=== PATIENT | female | born 1995 | race Caucasian/White ===

== ENCOUNTER 2016-03-25 13:03 | Emergency (ER) | payer OTHER ==
[2016-03-25] MEDS ORDERED: OXYCODONE/APAP 5/325 TAB PO ONE (13:21)
--- NOTE | 2016-03-25 13:29 | EDPHY ---
H & P Time Seen by Provider: 03/25/16 13:24 HPI/ROS: CHIEF COMPLAINT: Sore throat HISTORY OF PRESENT ILLNESS: This patient is a 20 year old female presenting with acute sore throat, onset yesterday. Progressively worsening today. Associated with fever, onset last night, and myalgias. She also notes vomiting and loose stools earlier this week. Symptoms are moderate in severity. She did not receive an influenza vaccine this year. Her roommate has a viral syndrome currently. Denies cough or congestion. REVIEW OF SYSTEMS: Constitutional: fever, chills Eyes: No visual changes ENT: sore throat Respiratory: No cough, no shortness of breath Cardiac: No chest pain Gastrointestinal: nausea, vomiting, loose stools, no abdominal pain Genitourinary: No hematuria, no dysuria Musculoskeletal: Myalgias. No leg pain or swelling Skin: No rash Neurological: No headache, no numbness, no weakness Psychiatric: No depression Past Medical/Surgical History: Mononucleosis Social History: [employer] student Smoking Status: Never smoked Physical Exam: General Appearance: Alert, no distress Eyes: Pupils equal and round, no conjunctival pallor or injection ENT, Mouth: Mucous membranes moist, moderate pharyngeal erythema Neck: Normal inspection Respiratory: Lungs are clear to auscultation Cardiovascular: Regular rate and rhythm Gastrointestinal: Abdomen is soft and non- tender Neurological: A&O, nonfocal, normal gait Skin: Warm and dry, no rash Extremities: Nontender, no pedal edema Psychiatric: Mood and affect normal Constitutional: Initial Vital Signs Temperature (C) 37.9 C 03/25/16 13:04 Heart Rate 114 H 03/25/16 13:04 Blood Pressure 133/81 H 03/25/16 13:04 O2 Sat (%) 98 03/25/16 13:04 O2 Delivery Mode Room Air Allergies/Adverse Reactions: amoxicillin Allergy (Verified 06/19/15 00:07) gluten Allergy (Verified 03/25/16 13:05) Milk Containing Products [dairy] Allergy (Verified 03/25/16 13:05) Home Medications: Medication Instructions Recorded Control 03/25/16 Hydrocodone/APAP 5/325 [Marlette 1 - 2 tab PO Q4H PRN #10 tab 03/25/16 5/325] Medical Decision Making ED Course/Re-evaluation: Rapid strep test is negative. Influenza test also ordered. Decadron 6mg orally given. Patient will call back for influenza results. Customary return precautions given. - Data Points Laboratory Results: 03/25/16 03/25/16 03/25/16 Unknown 13:55 13:07 Influenza Typ A,B (DFA) NEGATIVE FOR FLU (NEGATIVE) Group A Strep Screen NEGATIVE (NEGATIVE) Group A Strep DNA NEGATIVE (NEGATIVE) Medications Given: Discontinued Medications Dexamethasone Sodium Phosphate (Decadron) 6 mg IVP/PO EDNOW ONE Stop: 03/25/16 13:40 Last Admin: 03/25/16 14:08 Dose: 6 mg Oxycodone/Acetaminophen (Percocet 5/325) 1 tab PO EDNOW ONE Stop: 03/25/16 13:22 Last Admin: 03/25/16 13:25 Dose: 1 tab Departure - Departure Disposition: Home, Routine, Self-Care Clinical Impression: Acute pharyngitis Qualifiers: Pharyngitis/tonsillitis etiology: unspecified etiology Qualifier Code: (J02.9) Acute pharyngitis, unspecified Condition: Good Instructions: Pharyngitis (ED) Additional Instructions: Return to the Emergency Department for high fever, difficulty swallowing, difficulty tolerating liquids, neck pain or stiffness, shortness of breath or other concerns. Use Tylenol and/or ibuprofen as directed for pain. Drink plenty of fluids. Call back in two hours for influenza results. Adult Pain & Fever Control: We recommend Acetaminophen (Tylenol) and Ibuprofen (Motrin,Advil) for pain and fever control. When fever is high or pain severe, both drugs can be used at the same time, but at different intervals. Please note the time differences. Your dose is: Acetaminophen 650mg every 4 to 6 hours Ibuprofen 600mg every 6-8 hours with food Note: do not take Acetaminophen with Hydrocodone (Vicodin, Lortab) or Oycodone (Percocet). These medications also contain Acetaminophen. No more than 3000mg of Acetaminophen should be taken in 24 hours (for an adult). Referrals: [facility] [Outside] - As per Instructions Prescriptions: Hydrocodone/APAP 5/325 [Marlette 5/325] 1 - 2 tab PO Q4H PRN #10 tab PRN Reason: Pain, Moderate Report Scribed for: Angela Peterson Report Scribed by: Carmita Saucedo Date of Report: 03/25/16 Time of Report: 13:26 Physician Review and Approval Statement: 03/25/16 13:26 Portions of this note were transcribed by a medical supply technician. I personally performed a history, physical exam, medical decision making, and confirmed accuracy of information the transcribed note.
[2016-03-25] MEDS ORDERED: DEXAMETHASONE VARIABLE DOSE IVP/PO ONE (13:39)
[2016-03-25] MEDS ORDERED: DEXAMETHASONE 10 MG/ML VIAL ONE (13:46)
[2016-03-25 14:21] VITALS: BP 128/85; PULSE 88; RESP 18; TEMP 97.7; O2SAT 96
== END 2016-03-25 14:19 | disposition home or self-care (01) ==
DX: J02.9 Acute pharyngitis, unspecified (principal)

== ENCOUNTER 2016-06-13 00:18 | Emergency (ER) | payer OTHER ==
[2016-06-13] MEDS ORDERED: DEXAMETHASONE 10 MG/ML VIAL IVP ONE (00:56)
[2016-06-13] MEDS ORDERED: KETOROLAC 15 MG/1 ML SDV IVP ONE (00:56)
[2016-06-13] MEDS ORDERED: HALOPERIDOL LACT 5 MG/ML INJ IVP ONE (00:56)
[2016-06-13] MEDS ORDERED: NS 1,000 ML IV ONE (01:37)
--- NOTE | 2016-06-13 02:22 | EDPHY ---
H & P Stated Complaint: PITTS, N/V, abd pain since 06/05 Time Seen by Provider: 06/13/16 00:55 HPI/ROS: Chief Complaint: Headache, nausea HPI: 21-year-old female with history of chronic constipation prefers presenting with 1 week of worsening headache with new photophobia nausea and vomiting. Patient states that she has not have a history of the same. Denies any from trauma or injuries. Started out as a bifrontal headache was being progressively worse. No relief with [id number] medications. Suffers from chronic constipation which has been worked up extensively by GI and states she has not had a bowel movement in about a week, however this is normal for her. She has been drinking plenty of fluids PE. No fevers or chills. No neck pain or stiffness. No urinary frequency urgency. This is not the worst headache of her life. Is about an 8/10. It was gradual in onset. ROS: 10 point Review of Systems is negative except as noted in the HPI. PMH: Chronic constipation Social History: No smoking, occasional alcohol, no recreational drug use Family History: non-contributory Physical Exam: Gen: Awake, Alert, moderate photophobia HEENT: Nose: no rhinorrhea Eyes: PERRLA, EOMI Mouth: Moist mucosa Neck: Supple, no JVD Chest: nontender, lungs clear to auscultation Heart: S1, S2 normal, no murmur Abd: Soft, non-tender, no guarding Back: no CVA tenderness, no midline tenderness Ext: no edema, non-tender Skin: no rash Neuro: CN II-XII intact, Sensation grossly intact, Strength 5/5 in bilateral upper and lower extremities - Personal History LMP (Females 10-55): 1-7 Days Ago Current Tetanus/Diphtheria Vaccine: Unsure Current Tetanus Diphtheria and Acellular Pertussis (TDAP): Unsure Tetanus Vaccine Date: <10 years - Medical/Surgical History Hx Asthma: No Hx Chronic Respiratory Disease: No Hx Diabetes: No Hx Cardiac Disease: No Hx Renal Disease: No Hx Cirrhosis: No Hx Alcoholism: No Hx HIV/AIDS: No Hx Splenectomy or Spleen Trauma: No Other PMH: PMH- C-DIFF 2014, MONO, tonsilectomy - Social History Smoking Status: Never smoked Constitutional: Initial Vital Signs Temperature (C) 36.7 C 06/13/16 00:19 Heart Rate 92 06/13/16 00:19 Respiratory Rate 16 06/13/16 00:19 Blood Pressure 132/82 H 06/13/16 00:19 O2 Sat (%) 96 06/13/16 00:19 O2 Delivery Mode Room Air Allergies/Adverse Reactions: amoxicillin Allergy (Verified 06/19/15 00:07) gluten Allergy (Verified 03/25/16 13:05) Milk Containing Products [dairy] Allergy (Verified 03/25/16 13:05) Home Medications: Medication Instructions Recorded Control 03/25/16 Medical Decision Making ED Course/Re-evaluation: Patient is improved improved after migraine cocktail. Urinalysis is normal as is a negative test. No further vomiting here. Will discharge with follow-up with primary care physician, return for worsening. - Data Points Laboratory Results: 06/13/16 06/13/16 02:13 02:13 Urine Color YELLOW Urine Appearance MODERATELY TURBID Urine pH 7.0 (5.0-7.5) Ur Specific [place] 1.024 (1.002-1.030) Urine Protein NEGATIVE (NEGATIVE) Urine Ketones NEGATIVE (NEGATIVE) Urine Blood NEGATIVE (NEGATIVE) Urine Nitrate NEGATIVE (NEGATIVE) Urine Bilirubin NEGATIVE (NEGATIVE) Urine Urobilinogen NEGATIVE EU EU (0.2-1.0) Ur Leukocyte Esterase NEGATIVE (NEGATIVE) Urine Glucose NEGATIVE (NEGATIVE) Urine Test NEGATIVE Medications Given: Discontinued Medications Dexamethasone (Decadron Injection) 10 mg IVP EDNOW ONE Stop: 06/13/16 00:57 Last Admin: 06/13/16 01:32 Dose: 10 mg Haloperidol Lactate (Haldol Injection) 2.5 mg IVP EDNOW ONE Stop: 06/13/16 00:57 Last Admin: 06/13/16 01:33 Dose: 2.5 mg Sodium Chloride (Ns) 1,000 mls @ 0 mls/hr IV ONCE ONE PRN Reason: Wide Open Stop: 06/13/16 01:38 Last Admin: 06/13/16 01:15 Dose: 1,000 mls Ketorolac Tromethamine (Toradol) 15 mg IVP EDNOW ONE Stop: 06/13/16 00:57 Last Admin: 06/13/16 01:31 Dose: 15 mg Departure - Departure Disposition: Home, Routine, Self-Care Clinical Impression: Headache Condition: Good Instructions: Acute Headache (ED) Additional Instructions: Follow up with your textile technical officer and with [facility] for further evaluation. Return to the ER for increasing headache, uncontrolled nausea vomiting, fevers, chills, or any other concerns. Referrals: UNKNOWN,NAME [Other] - As per Instructions [facility] [Outside] - As per Instructions
[2016-06-13 02:25] LABS: COLOR YELLOW; LEUKOCYTE ESTERASE,URINE NEGATIVE (NEGATIVE); NITRITE,URINE NEGATIVE (NEGATIVE)
[2016-06-13 02:55] VITALS: BP 105/70; PULSE 75; RESP 14; TEMP 98.4; O2SAT 95
== END 2016-06-13 02:54 | disposition home or self-care (01) ==
DX: R51 Headache (principal)
CPT/HCPCS: 96374; J1885

== ENCOUNTER 2016-12-02 19:28 | Emergency (ER) | payer OTHER ==
[2016-12-02] MEDS ORDERED: NS 1,000 ML IV ONE (19:57)
[2016-12-02] MEDS ORDERED: fentaNYL 100 MCG/2 ML INJ IVP ONE (19:57)
[2016-12-02] MEDS ORDERED: ONDANSETRON 4 MG/2 ML VIAL IVP ONE (19:57)
--- NOTE | 2016-12-02 20:04 | EDPHY ---
H & P Time Seen by Provider: 12/02/16 19:40 HPI/ROS: CHIEF COMPLAINT: Abdominal pain, vomiting HISTORY OF PRESENT ILLNESS: 21-year-old female presents to the emergency department with lower abdominal pain and vomiting that began abruptly 1 hour prior to arrival. The patient states that she was at work and the pain began abruptly. She complains of left greater than right lower abdominal pain. She feels nauseous and has vomited multiple times. No back pain. No urinary symptoms. Last menstrual period was 1 week ago and she denies . She takes oral contraceptive pills. Denies chest pain or difficulty breathing. Denies any reported trauma. She has never had this pain in the past. REVIEW OF SYSTEMS: Constitutional: No fever, no chills. Eyes: No double or blurry vision. ENT: No sore throat. Respiratory: No cough, no shortness of breath. Cardiac: No chest pain. Gastrointestinal: Abdominal pain and vomiting as above. No diarrhea. Genitourinary: No dysuria. Musculoskeletal: No neck or back pain. Skin: No rashes. Neurological: No headache. Past Medical/Surgical History: Negative Social History: [employer] student Smoking Status: Never smoked Physical Exam: General Appearance: Alert, no distress. Tearful. Afebrile. Eyes: Pupils equal and round. Extraocular motions are all intact. ENT: Mouth: Mucous membranes moist. Respiratory: No wheezing, rhonchi, or rales, lungs are clear to auscultation. Cardiovascular: Regular rate and rhythm. Gastrointestinal: Abdomen is soft. Tenderness with palpation in the left greater than right lower quadrant. Neurological: Alert and oriented x 3, cranial nerves II through XII grossly intact Skin: Warm and dry, no rashes. Musculoskeletal: Nontender to palpate along the cervical, thoracic or lumbar spine. Neck is supple. Extremities: Full range of motion and no peripheral edema. Psychiatric: Patient is oriented X 3, there is no agitation. Constitutional: Initial Vital Signs Temperature (C) 36.6 C 12/02/16 19:36 Heart Rate 89 12/02/16 19:36 Respiratory Rate 18 12/02/16 19:36 Blood Pressure 117/88 H 12/02/16 19:36 O2 Sat (%) 99 12/02/16 19:36 O2 Delivery Mode Room Air Allergies/Adverse Reactions: amoxicillin Allergy (Verified 12/02/16 19:38) gluten Allergy (Verified 12/02/16 19:38) Milk Containing Products [dairy] Allergy (Verified 12/02/16 19:38) Home Medications: Medication Instructions Recorded Control 03/25/16 Medical Decision Making - Diagnostics Imaging Results: Imaging Impressions Pelvic/Renal Ultrasound 12/02/16 19:57 Impression: 1. Normal ovaries. No ovarian cysts, torsion, or free fluid. 2. Normal uterus. Findings discussed with emergency department physician vet assistant, Jaylene Nunes PA-C on December 02, 2016 at 9:36 p.m. Imaging: Discussed imaging studies w/ research scholar Radiologist ED Course/Re-evaluation: Patient had IV established and laboratory studies were drawn. Laboratory studies were within normal limits. She was initially given IV fentanyl and Zofran for pain. Pelvic ultrasound was unremarkable. The patient continued to have left lower quadrant abdominal pain. Patient was given Toradol 30 mg IV. She was feeling much better. She still continued to have mild pain in the left lower quadrant. I recommended CT imaging of the abdomen pelvis, however the patient declined. Feel that this is reasonable. She did agree to return to the emergency department if she developed worsening symptoms, vomiting, fevers or chills or if she felt worse in any way. Differential Diagnosis: Including but not limited to ovarian cyst, ovarian torsion, urinary tract infection, pyelonephritis, kidney stone, acute appendicitis, colitis, diverticulitis - Data Points Laboratory Results: Laboratory Results 12/02/16 20:04 12/02/16 20:04 12/02/16 12/02/16 12/02/16 20:17 20:04 20:04 WBC RBC Hgb Hct MCV MCH MCHC RDW Plt Count MPV Neut % (Auto) Lymph % (Auto) [place] % (Auto) Eos % (Auto) Baso % (Auto) Nucleat RBC Rel Count Absolute Neuts (auto) Absolute Lymphs (auto) Absolute Monos (auto) Absolute Eos (auto) Absolute Basos (auto) Absolute Nucleated RBC Immature Gran % Immature Gran # Sodium 141 mEq/L mEq/L (134-144) Potassium 4.0 mEq/L mEq/L (3.5-5.2) Chloride 101 mEq/L mEq/L (97-110) Carbon Dioxide 22 mEq/l mEq/l (22-31) Anion Gap 18 mEq/L H mEq/L (8-16) BUN 10 mg/dL mg/dL (7-23) Creatinine 0.8 mg/dL mg/dL (0.6-1.0) Estimated GFR > 60 Glucose 79 mg/dL mg/dL (70-100) Calcium 10.8 mg/dL H mg/dL (8.5-10.4) Phosphorus 4.1 mg/dL mg/dL (2.5-4.5) Beta HCG, Qual NEGATIVE Urine Color YELLOW Urine Appearance HAZY Urine pH 5.0 (5.0-7.5) Ur Specific [place] 1.021 (1.002-1.030) Urine Protein NEGATIVE (NEGATIVE) Urine Ketones NEGATIVE (NEGATIVE) Urine Blood NEGATIVE (NEGATIVE) Urine Nitrate NEGATIVE (NEGATIVE) Urine Bilirubin NEGATIVE (NEGATIVE) Urine Urobilinogen NEGATIVE EU EU (0.2-1.0) Ur Leukocyte Esterase NEGATIVE (NEGATIVE) Urine RBC 1-3 /hpf /hpf (0-3) Urine WBC 1-3 /hpf /hpf (0-3) Ur Epithelial Cells TRACE /lpf /lpf (NONE-1+) Urine Bacteria TRACE /hpf H /hpf (NONE SEEN) Urine Mucus TRACE /lpf /lpf (NONE-1+) Urine Glucose NEGATIVE (NEGATIVE) 12/02/16 20:04 WBC 8.58 10^3/uL 10^3/uL (3.80-9.50) RBC 4.97 10^6/uL 10^6/uL (4.18-5.33) Hgb 15.8 g/dL g/dL (12.6-16.3) Hct 45.5 % % (38.0-47.0) MCV 91.5 fL fL (81.5-99.8) MCH 31.8 pg pg (27.9-34.1) MCHC 34.7 g/dL g/dL (32.4-36.7) RDW 11.9 % % (11.5-15.2) Plt Count 298 10^3/uL 10^3/uL (150-400) MPV 10.2 fL fL (8.7-11.7) Neut % (Auto) 59.4 % % (39.3-74.2) Lymph % (Auto) 30.3 % % (15.0-45.0) [place] % (Auto) 7.3 % % (4.5-13.0) Eos % (Auto) 1.9 % % (0.6-7.6) Baso % (Auto) 0.6 % % (0.3-1.7) Nucleat RBC Rel Count 0.0 % % (0.0-0.2) Absolute Neuts (auto) 5.10 10^3/uL 10^3/uL (1.70-6.50) Absolute Lymphs (auto) 2.60 10^3/uL 10^3/uL (1.00-3.00) Absolute Monos (auto) 0.63 10^3/uL 10^3/uL (0.30-0.80) Absolute Eos (auto) 0.16 10^3/uL 10^3/uL (0.03-0.40) Absolute Basos (auto) 0.05 10^3/uL 10^3/uL (0.02-0.10) Absolute Nucleated RBC 0.00 10^3/uL 10^3/uL (0-0.01) Immature Gran % 0.5 % % (0.0-1.1) Immature Gran # 0.04 10^3/uL 10^3/uL (0.00-0.10) Sodium Potassium Chloride Carbon Dioxide Anion Gap BUN Creatinine Estimated GFR Glucose Calcium Phosphorus Beta HCG, Qual Urine Color Urine Appearance Urine pH Ur Specific [place] Urine Protein Urine Ketones Urine Blood Urine Nitrate Urine Bilirubin Urine Urobilinogen Ur Leukocyte Esterase Urine RBC Urine WBC Ur Epithelial Cells Urine Bacteria Urine Mucus Urine Glucose Medications Given: Discontinued Medications Fentanyl (Sublimaze) 50 mcg IVP EDNOW ONE Stop: 12/02/16 19:58 Last Admin: 12/02/16 20:20 Dose: 50 mcg Sodium Chloride (Ns) 1,000 mls @ 0 mls/hr IV EDNOW ONE; Wide Open PRN Reason: Protocol Stop: 12/02/16 19:58 Last Admin: 12/02/16 20:20 Dose: 1,000 mls Ketorolac Tromethamine (Toradol) 30 mg IVP EDNOW ONE Stop: 12/02/16 21:50 Last Admin: 12/02/16 21:51 Dose: 30 mg Ondansetron HCl (Zofran) 4 mg IVP EDNOW ONE Stop: 12/02/16 19:58 Last Admin: 12/02/16 20:20 Dose: 4 mg Departure - Departure Disposition: Home, Routine, Self-Care Clinical Impression: Abdominal pain Qualifiers: Abdominal location: left lower quadrant Qualified Code(s): R10.32 - Left lower quadrant pain Condition: Good Instructions: Acute Abdominal Pain (ED) Additional Instructions: Abdominal Pain: Return to the Emergency Department immediately for increasing pain, fever, vomiting, or if not completely better in 8-12 hours. Referrals: Radames Lock MD [[facility] Primary Care Provider] - 1 day, if not improved ( Primary care provider manager contact) Stand Alone Forms: School Excuse
[2016-12-02 20:23] LABS: % IMMATURE GRANULYOCYTES 0.5 % (0.0-1.1); ABSOLUTE IMMATURE GRANULOCYTES 0.04 10^3/uL (0.00-0.10); ADD DIFF? NO; ADD MORPH? NO; ADD SCAN? NO; ATYPICAL LYMPHOCYTE FLAG 10 (0-99); FRAGMENT RBC FLAG 0 (0-99); HEMATOCRIT 45.5 % (38.0-47.0); HEMOGLOBIN 15.8 g/dL (12.6-16.3); LEFT SHIFT FLG 0 (0-99); LIPEMIA HEMOLYSIS FLAG 90 (0-99); MEAN CELL HEMOGLOBIN 31.8 pg (27.9-34.1); MEAN CELL HEMOGLOBIN CONCENTR. 34.7 g/dL (32.4-36.7); MEAN CELL VOLUME 91.5 fL (81.5-99.8); MEAN PLATELET VOLUME 10.2 fL (8.7-11.7); PLATELET CLUMPS FLAG 10 (0-99); PLATELET COUNT 298 10^3/uL (150-400); RED BLOOD CELL COUNT 4.97 10^6/uL (4.18-5.33); RED CELL DISTRIBUTION WIDTH 11.9 % (11.5-15.2)
[2016-12-02 20:33] LABS: ANION GAP 18 mEq/L (8-16); CALCIUM 10.8 mg/dL (8.5-10.4); CARBON DIOXIDE 22 mEq/l (22-31); CHLORIDE 101 mEq/L (97-110); CREATININE 0.8 mg/dL (0.6-1.0); GLOMERULAR FILTRATION RATE > 60; GLUCOSE 79 mg/dL (70-100); SODIUM 141 mEq/L (134-144)
[2016-12-02 20:59] LABS: BACTERIA TRACE /hpf (NONE SEEN); COLOR YELLOW; LEUKOCYTE ESTERASE,URINE NEGATIVE (NEGATIVE); MUCUS TRACE /lpf (NONE-1+); NITRITE,URINE NEGATIVE (NEGATIVE)
[2016-12-02] MEDS ORDERED: KETOROLAC 30 MG/1 ML SDV ONE (21:49)
[2016-12-02] MEDS ORDERED: KETOROLAC 30 MG/1 ML SDV IVP ONE (21:49)
[2016-12-02 22:55] VITALS: BP 121/82; PULSE 69; RESP 16; TEMP 98.4; O2SAT 95
== END 2016-12-02 22:52 | disposition home or self-care (01) ==
PROC: 3E0337Z Introduction of Electrolytic and Water Balance Substance into Peripheral Vein, Percutaneous Approach (ICD-10-PCS; principal; 2016-12-02)
DX: R10.32 Left lower quadrant pain (principal); E86.9 Volume depletion, unspecified
CPT/HCPCS: 96374; J1885; J2405; J3010

== ENCOUNTER 2017-03-21 15:08 | Emergency (ER) | payer OTHER ==
--- NOTE | 2017-03-21 15:37 | EDPHY ---
H & P Stated Complaint: referred by [facility] for mastitis - Personal History LMP (Females 10-55): 1-7 Days Ago Current Tetanus/Diphtheria Vaccine: Yes Current Tetanus Diphtheria and Acellular Pertussis (TDAP): Yes Tetanus Vaccine Date: <10 years - Medical/Surgical History Hx Asthma: No Hx Chronic Respiratory Disease: No Hx Diabetes: No Hx Cardiac Disease: No Hx Renal Disease: No Hx Cirrhosis: No Hx Alcoholism: No Hx HIV/AIDS: No Hx Splenectomy or Spleen Trauma: No Other PMH: PMH- C-DIFF 2014, MONO, tonsilectomy, sinus infection - Social History Smoking Status: Never smoked Time Seen by Provider: 03/21/17 15:24 HPI/ROS: CHIEF COMPLAINT: Possible mastitis HISTORY OF PRESENT ILLNESS: 21-year-old immunocompetent female states that 1 week ago she had bilateral nipples pierced at a piercing store. The past today she has noticed erythema and discharge particularly from the left piercing site as well as fever. No nausea or vomiting. Seen at [facility] today and referred to the ER for evaluation, possible IV antibiotics. She is complaining of bilateral axillary adenopathy left greater than right. No dyspnea. No chest pain. No abdominal pain. REVIEW OF SYSTEMS: A ten point review of systems was performed and is negative with the exception of the items mentioned in the HPI PAST MEDICAL & SURGICAL HISTORY: History of chronic skin infections or MRSA history. Up-to-date with tetanus SOCIAL HISTORY:Student PHYSICAL EXAM (Prior to examination, patient consented to physical exam, hands were washed and my usual and customary physical exam procedures followed) 1) GENERAL: Well-developed, well-nourished, alert and oriented. Appears nontoxic, smiling. 2) HEAD: Normocephalic, atraumatic 3) HEENT: Pupils equal, round, reactive to light bilaterally. Sclera anicteric. 4) NECK: Full range of motion, no meningeal signs. 5) LUNGS: Clear auscultation bilaterally, no wheezes, no rhonchi, no retractions. 6) HEART AND CHEST: Chest wall examination with female nurse Nolvia at bedside reveals bilateral nipple piercings in place. There is periareolar erythema left greater than right, discharged from the left nipple piercing site. Bilateral adenopathy left greater than right. No fluctuance, no signs of subareaoler abscess or rosario area older fistula, or deep space infection. 7) ABDOMEN: No guarding, no rebound, no focal tenderness, negative McBurney's, negative Allen's, negative Rovsing's, negative peritoneal sign, 8) MUSCULOSKELETAL: Moving all extremities, no focal areas of tenderness, no obvious trauma. No peripheral edema or discoloration. 9) BACK: No CVA tenderness, no midline vertebral tenderness, no fluctuance, no step-off, no obvious trauma, no visual or palpable abnormality. 10) SKIN: No rash, no petechiae. 11) Psychiatric: Patient is oriented X 3, there is no agitation. DIFFERENTIAL DIAGNOSIS: In no particular order including the mastitis, cellulitis, sub periareolar abscess,periareolar fistula (Mariano,Kristina Garcia) Constitutional: Initial Vital Signs Temperature (C) 37 C 03/21/17 15:14 Heart Rate 109 H 03/21/17 15:14 Respiratory Rate 18 03/21/17 15:14 Blood Pressure 128/90 H 03/21/17 15:14 O2 Sat (%) 98 03/21/17 15:14 O2 Delivery Mode Room Air Allergies/Adverse Reactions: amoxicillin Allergy (Verified 03/21/17 15:13) cefazolin [From Ancef] Allergy (Verified 03/21/17 15:59) gluten Allergy (Verified 03/21/17 15:13) Milk Containing Products [dairy] Allergy (Verified 03/21/17 15:13) Home Medications: Medication Instructions Recorded Control 03/25/16 Doxycycline Hyclate 100 mg PO BID #14 capsule 03/21/17 Wellbutrin Xl 03/21/17 Medical Decision Making ED Course/Re-evaluation: 3:37 p.m.: The patient's bilateral piercings were removed by nursing staff. Recommend she would leave these out. Doubt abscess or deep space infection. I think the patient can be treated on outpatient basis. Plan will be IV Ancef Care of patient under supervision of secondary supervising physician Dr Bear with whom I discussed case. . 4:04 p.m.: I was called emergently to the patient's bedside as she was vomiting , erythematous, concern over possible allergic reaction after IV Ancef was administered. I examined the patient at this time at which point she is retching, skin is erythematous. She is breathing comfortably. She will be administered Benadryl, ranitidine, Solu-Medrol, epinephrine and re-evaluated. 4:14 p.m.: Re-evaluation after epinephrine, H1 H2, Solu-Medrol. Patient asymptomatic now skin color has returned to baseline, lungs clear bilaterally. We discussed that allergic reaction is also possibility with medication and she verbalized understanding of this.. We discussed oral outpatient antibiotic therapy, discussed clindamycin however she notes that she had a bad episode of C diff colitis when she was placed on clindamycin previously. We discussed starting her on doxycycline which she has no known prior adverse reaction. She is already fair-skinned and we discussed doxycycline photo sensitivity and the importance of sun protection. Patient will be observed for a period of time in the ER to ensure no rebound allergic reaction. (Kristina Quintana) Other Provider: I evaluated and participated in the management of the patient. My co-signature indicates that I have reviewed this chart and I agree with thefindings and plan of care as documented.My personal H&P findings include: 21 year old female with nipple piecing several days ago, sent from [facility] for concerns regarding mastitis. Patient has not had a fever but has felt poorly for several days. Noted red areas developing on left breast; worse this morning and sought care. On exam, patient is pleasant, WDWN, nad. Left breast: (piercings had been removed previously) several blotchy, nonconfluent areas of erythema extending superior to nipple. No abscess, no fluctuance. Patient had reported allergy to penicillin with uncertain reaction. She received ancef in the ED, but developed nausea, erythema, vomiting after dose was administered. Treated as allergic reaction with solumedrol, benadryl, epi, h2 frida. 1823: Reassessed patient; she is feeling better after her allergic reaction to Ancef. PA had discussed use of clindamycin for mastitis, but patient concerned regarding prior c diff that developed after receiving clindamycin. She will be prescribed doxycycline for the mastitis, her first dose will be given in the ED. Strict return precautions provided; patient is comfortable with this plan. (Kenia Bear) - Data Points Laboratory Results: Laboratory Results 03/21/17 15:35 03/21/17 15:35 Medications Given: Discontinued Medications Diphenhydramine HCl (Benadryl Injection) 50 mg IVP EDNOW ONE Stop: 03/21/17 16:08 Last Admin: 03/21/17 16:11 Dose: 50 mg Doxycycline Hyclate (Doxycycline Hyclate) 100 mg PO EDNOW ONE PRN Reason: Protocol Stop: 03/21/17 18:31 Last Admin: 03/21/17 19:02 Dose: 100 mg Doxycycline Hyclate (Vibramycin 100 Mg Prepack#2) 1 btl TAKEHOME EDNOW ONE Stop: 03/21/17 18:32 Last Admin: 03/21/17 19:02 Dose: 1 btl Epinephrine HCl (Epinephrine) 0.3 mg IM EDNOW ONE Stop: 03/21/17 16:08 Last Admin: 03/21/17 16:12 Dose: 0.3 mg Cefazolin Sodium/Dextrose (Ancef 1 Gm (Premix)) 50 mls @ 200 mls/hr IV EDNOW ONE PRN Reason: Protocol Stop: 03/21/17 15:47 Last Admin: 03/21/17 15:43 Dose: 50 mls Sodium Chloride (Ns) 1,000 mls @ 0 mls/hr IV ONCE ONE PRN Reason: Wide Open Stop: 03/21/17 15:40 Last Admin: 03/21/17 15:43 Dose: 1,000 mls Methylprednisolone Sodium Succinate (Solu-Medrol) 125 mg IVP EDNOW ONE Stop: 03/21/17 16:08 Last Admin: 03/21/17 16:13 Dose: 125 mg Ondansetron HCl (Zofran) 4 mg IVP EDNOW ONE Stop: 03/21/17 16:08 Last Admin: 03/21/17 16:12 Dose: 4 mg Ranitidine HCl (Zantac) 50 mg IVP EDNOW ONE Stop: 03/21/17 16:08 Last Admin: 03/21/17 16:12 Dose: 50 mg Departure - Departure Disposition: Home, Routine, Self-Care Clinical Impression: Mastitis, Allergic reaction to cephalosporin Condition: Good Instructions: Mastitis (ED), Allergies (ED) Additional Instructions: Rest the infected area, I recommend providing more support to the area as well. Take doxycycline as prescribed. Continue to take ibuprofen for the pain. Warm compresses may help with the pain as well. Return to the ER if you develop redness, swelling, discharge, warmth to the wound, fever, vomiting, diarrhea or any other symptoms that concern you. You had a likely allergic reaction to "cephalosporin" class of medication, do not take this class of medication in the future. If you develop shortness of breath, rash, or any other symptoms call 911. Referrals: TRACY Neal,. [Clinic] - 1-2 days without fail Stand Alone Forms: School Excuse Prescriptions: Doxycycline Hyclate 100 mg PO BID #14 capsule
[2017-03-21] MEDS ORDERED: NS 1,000 ML IV ONE (15:39)
[2017-03-21 15:44] LABS: PLATELET COUNT 208 10^3/uL (150-400)
[2017-03-21] MEDS ORDERED: ONDANSETRON 4 MG/2 ML VIAL ONE (15:56)
[2017-03-21] MEDS ORDERED: RANITIDINE 50 MG/2 ML VIAL IVP ONE (16:07)
[2017-03-21] MEDS ORDERED: ONDANSETRON 4 MG/2 ML VIAL IVP ONE (16:07)
[2017-03-21] MEDS ORDERED: methylPREDNISolone SOD SUCC 125 MG/2 ML VIAL IVP ONE (16:07)
[2017-03-21] MEDS ORDERED: VANCOMYCIN HCL/NORMAL SALINE 250 ML IV ONE (16:53)
[2017-03-21] MEDS ORDERED: RANITIDINE 50 MG/2 ML VIAL ONE (17:27)
[2017-03-21] MEDS ORDERED: methylPREDNISolone SOD SUCC 125 MG/2 ML VIAL ONE (17:27)
[2017-03-21] MEDS ORDERED: DOXYCYCLINE HYCLATE 100 MG CAP/TAB PO ONE (18:30)
[2017-03-21] MEDS ORDERED: DOXYCYCLINE 100 MG PREPACK#2 BTL TAKEHOME ONE (18:31)
[2017-03-21 19:13] VITALS: BP 108/82; PULSE 70; RESP 16; TEMP 98.1; O2SAT 99
== END 2017-03-21 19:13 | disposition home or self-care (01) ==
DX: N61.0 Mastitis without abscess (principal); T36.1X5A Adverse effect of cephalosporins and other beta-lactam antibiotics, initial encounter
CPT/HCPCS: 96374; J0690; J1200; J2405; J2780; J2930; J3370

== ENCOUNTER 2017-03-27 13:17 | Emergency (ER) | payer OTHER ==
--- NOTE | 2017-03-27 13:55 | EDPHY ---
H & P Stated Complaint: Allergic reaction. Time Seen by Provider: 03/27/17 13:34 HPI/ROS: CHIEF COMPLAINT: Allergy reaction versus anxiety HISTORY OF PRESENT ILLNESS: The patient is a 21-year-old female who was seen here a week ago for cellulitis of both nipples after nipple piercing. She was given a dose of IV Ancef here in the ER and had a reaction that was thought to be an allergic reaction. She began vomiting and hyperventilating and possibly had some erythema to her face but no urticaria. She was switched to doxycycline which she has taken for the last several days. Today she presented to [facility] because she stated that she had some vomiting and felt like her throat was closing. She did not have hives. She was given epinephrine IM and EMS was called. By ambulance she was given Benadryl. Here she is asymptomatic. REVIEW OF SYSTEMS: Constitutional: denies: chills, fever, recent illness, recent injury EENTM: denies: blurred vision, double vision, nose congestion Respiratory: denies: cough, shortness of breath Cardiac: denies: chest pain, irregular heart rate, lightheadedness, palpitations Gastrointestinal/Abdominal: denies: abdominal pain, diarrhea, nausea, vomiting, blood streaked stools Genitourinary: denies: dysuria, frequency, hematuria, pain Musculoskeletal: denies: joint pain, muscle pain Skin: denies: lesions, rash, jaundice, bruising Neurological: denies: headache, numbness, paresthesia, tingling, dizziness, weakness Hematologic/Lymphatic: denies: blood clots, easy bleeding, easy bruising Immunologic/allergic: denies: HIV/AIDS, transplant EXAM: GENERAL: Well-appearing, well-nourished and in no acute distress. HEAD: Atraumatic, normocephalic. EYES: Pupils equal round and reactive to light, extraocular movements intact, sclera anicteric, conjunctiva are normal. ENT: TMs normal, nares patent, oropharynx clear without exudates. Moist mucous membranes. NECK: Normal range of motion, supple without lymphadenopathy or JVD. LUNGS: Breath sounds clear to auscultation bilaterally and equal. No wheezes rales or rhonchi. HEART: Regular rate and rhythm without murmurs, rubs or gallops. ABDOMEN: Soft, nontender, normoactive bowel sounds. No guarding, no rebound. No masses appreciated. BACK: No CVA tenderness, no spinal tenderness, step-offs or deformities EXTREMITIES: Normal range of motion, no pitting or edema. No clubbing or cyanosis. NEUROLOGICAL: Cranial nerves II through XII grossly intact. Normal speech, normal gait. 5/5 strength, normal movement in all extremities, normal sensation PSYCH: Normal mood, normal affect. SKIN: Warm, dry, normal turgor, no visible rashes or lesions. Source: Patient Exam Limitations: No limitations - Personal History LMP (Females 10-55): 8-14 Days Ago Current Tetanus Diphtheria and Acellular Pertussis (TDAP): Yes Tetanus Vaccine Date: <10 years - Medical/Surgical History Hx Asthma: No Hx Chronic Respiratory Disease: No Hx Diabetes: No Hx Cardiac Disease: No Hx Renal Disease: No Hx Cirrhosis: No Hx Alcoholism: No Hx HIV/AIDS: No Hx Splenectomy or Spleen Trauma: No Other PMH: Depression. - Family History Significant Family History: No pertinent family hx - Social History Smoking Status: Never smoked Alcohol Use: Sober Constitutional: Initial Vital Signs Temperature (C) 36.6 C 03/27/17 13:18 Heart Rate 95 03/27/17 13:18 Respiratory Rate 20 03/27/17 13:18 Blood Pressure 120/92 H 03/27/17 13:18 O2 Sat (%) 100 03/27/17 13:18 O2 Delivery Mode Room Air Allergies/Adverse Reactions: amoxicillin Allergy (Verified 03/21/17 15:13) cefazolin [From Ancef] Allergy (Verified 03/21/17 15:59) gluten Allergy (Verified 03/21/17 15:13) Milk Containing Products [dairy] Allergy (Verified 03/21/17 15:13) Home Medications: Medication Instructions Recorded Control 03/25/16 Wellbutrin Xl 03/21/17 Medical Decision Making ED Course/Re-evaluation: Here the patient is completely asymptomatic. After listening to her symptoms I called the [facility] clinic to see what they observed. According to the nurse there she did not have any objective signs of allergic reaction. She did not have hives or swelling. She did vomit. They wondered if this was possibly an anxiety attack however they did proceed to give her epinephrine and called 911 because they were unsure. I will observe at this point and resist further treatment. This seems more classic for an anxiety attack than an allergic reaction. Possibly the same could be said for the Ancef that she received during her previous visit as well. The patient's cellulitis is completely resolved. I will have her stop antibiotics altogether. I will not list doxycycline as an allergy. 2:55 p.m. the patient remains asymptomatic. She is asking to leave. Her friends are here and they have a puppy with them. We discussed the differential. We discussed anaphylaxis, anaphylactoid reactions and anxiety attacks etc. I recommended she follow up with an enamel applier for object testing. She agrees with this plan. We discussed the importance of allergies and also knowing whether not you are truly allergic for when antibiotics become necessary in the future. Differential Diagnosis: Partial list of the Differential diagnosis considered include but were not limited to; allergic reaction, anxiety reaction, gastroenteritis and although unlikely based on the history and physical exam, I also considered dehydration, cellulitis, mastitis, sepsis. I discussed these differential diagnoses and the plan with the patient as well as the usual and expected course. The patient understands that the diagnosis is provisional and that in medicine we are not always correct and that further workup is often warranted. Usual and customary warnings were given. All of the patient's questions were answered. The patient was instructed to return to the emergency department should the symptoms at all worsen or return, otherwise to followup with the physician as we discussed. Departure - Departure Disposition: Home, Routine, Self-Care Clinical Impression: Medication reaction Qualifiers: Encounter type: initial encounter Qualified Code(s): T88.7XXA - Unspecified adverse effect of drug or medicament, initial encounter Condition: Fair Instructions: Allergy Testing (ED) Additional Instructions: Stop taking the antibiotics. Your infection has resolved. It is unclear whether not which she experienced today was allergy. Please get allergy tested to confirm which antibiotics you may or may not take. Referrals: Lindy Arroyo MD [[facility] Primary Care Provider] - 5-7 days, call for appt. Stand Alone Forms: School Excuse
[2017-03-27 15:17] VITALS: BP 127/75; PULSE 88; RESP 16; TEMP 98.8; O2SAT 99
== END 2017-03-27 15:13 | disposition home or self-care (01) ==
LOC: EDUNIT#
DX: R11.10 Vomiting, unspecified (principal); T36.4X5A Adverse effect of tetracyclines, initial encounter

== ENCOUNTER 2017-03-31 15:28 | Emergency (ER) | payer OTHER ==
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
[2017-03-31 16:18] VITALS: BP 139/76; PULSE 98; RESP 18; TEMP 99; O2SAT 96
== END 2017-03-31 16:20 | disposition home or self-care (01) ==
DX: M79.81 Nontraumatic hematoma of soft tissue (principal)